=== PATIENT | female | born 1975 | race African-American/Black ===

== ENCOUNTER 2022-09-04 15:09 | Emergency (ER) | payer OTHER ==
[~2022-09-04] VITALS: Ht 170.2 cm; Wt 105.4 kg
[2022-09-04] MEDS ORDERED: LYRICA75 MG PO (15:25)
[2022-09-04] MEDS ORDERED: OLMESARTAN MEDO20 MG (15:25)
[2022-09-04] MEDS ORDERED: LASIX20 MG PO (15:25)
[2022-09-04] MEDS ORDERED: AMLODIPINE BESYL5 MG PO (15:25)
[2022-09-04] MEDS ORDERED: HYDRALAZINE HCL25 MG PO (15:25)
[2022-09-04] MEDS ORDERED: LORTAB 10 MG-3473 ML PO (15:25)
[2022-09-04] MEDS ORDERED: METOPROLOL SUCC50 MG PO (15:25)
[2022-09-04] MEDS ORDERED: IBUPROFEN 600 MG TAB PO STA (16:10)
[2022-09-04] MEDS ORDERED: IBUPROFEN 600 MG TAB ONE (16:21)
== END 2022-09-04 17:01 | disposition home or self-care (01) ==
LOC: FSED 15:12
DX: S62.625A Displaced fracture of middle phalanx of left ring finger, initial encounter for closed fracture (principal); M54.50 Low back pain, unspecified; R51.9 Headache, unspecified; W17.89XA Other fall from one level to another, initial encounter; Y92.89 Other specified places as the place of occurrence of the external cause; I10 Essential (primary) hypertension; I50.9 Heart failure, unspecified; Z95.810 Presence of automatic (implantable) cardiac defibrillator
CPT/HCPCS: 72220; 99283